=== PATIENT | female | born 1930 | race Caucasian/White ===

== ENCOUNTER 2016-08-10 11:47 | Inpatient (IN) | payer MEDICARE, BC ==
--- NOTE | ~2016-08-10 | EEG ---
Electroencephalogram [place] [address] [place]. [address] NAME: LEYDA JOHNSON : 32 STATUS : ADM IN PAT#: [id number] AGE: 86 ADM/REG DATE : 08/11/16 MR#: [id number] REPORT SERV DATE: 08/13/16 DICTATED BY: EDGARD PARKER DATE: 08/13/16 REPORT STATUS : Draft TRANSCRIBED BY: ZHOU DATE: 08/13/16 ELECTROENCEPHALOGRAPHY REPORT REQUESTING PHYSICIAN: Luis Armando Ford M.D. INTERPRETING PHYSICIAN: Edgard Parker MD-Neurology. EEG NUMBER: [id number] AGE: 86 REASON FOR EEG: Episodes of auditory aura occurring intermittently followed by episodes of hypersomnolence and occasional urinary incontinence. Recent onset of altered mental status. As per patient, these episodes at times are preceded by patient experiencing a smelling of unpleasant odor. 23 surface electrodes, 10-20 international placement was used. Photic stimulation was performed. Video monitoring was utilized. The patient was noted to be awake, drowsy, and asleep throughout the study. The background activity consisted of moderate voltage, relatively well-organized. 9-10 cycles per second located in the posterior head regions during the awake portion of the recording. Photic stimulation produced a driving response posteriorly. During photic stimulation, rare right posterior parietal and occipital sharp activity appeared. This was associated with photic stimulation of 8 cycles per second. Moderate amount of low-voltage fast activity was also seen scattered throughout. During drowsiness, increase of slower frequencies in the theta range was seen and that activity was predominantly seen in the frontal temporal regions. The configuration of the theta range activity seen to be unusually sharp, occasional phase reversals were also seen. Rare episode of high voltage spike activity was noted in the frontal central region. See page of recorded time 0:17:18, 815. The patient's drive thru order taker showed sinus rhythm with rate of 64 beats per minute. Occasional PVCs were noted. IMPRESSION: ABNORMAL EEG CHARACTERIZED BY PRESENCE OF PAROXYSMAL HIGH VOLTAGE SPIKE AND SPIKE AND WAVE ACTIVITY SEEN IN FRONTAL CENTRAL REGIONS. INTERMITTENTLY BILATERAL SYNCHRONOUS PARIETAL TEMPORAL SLOWING WAS SEEN. ONLY VERY BRIEF PERIOD OF LIGHT SLEEP WAS RECORDED. JUDSON/ZHOU Edgard Parker MD / [id number] Electroencephalogram [address] [place]. [address] NAME: LEYDA JOHNSON : 32 STATUS : ADM IN PAT#: [id number] AGE: 86 ADM/REG DATE : 08/11/16 MR#: [id number] REPORT SERV DATE: 08/13/16 DICTATED BY: EDGARD PARKER DATE: 08/13/16 REPORT STATUS : Draft TRANSCRIBED BY: MODL DATE: 08/13/16 CC: Luis Armando Ford M.D.
--- NOTE | ~2016-08-10 | CN ---
Consultation Report [facility] [address] [facility] [place]. [address] NAME: LEYDA JOHNSON : 32 STATUS : ADM IN PAT#: [id number] AGE: 86 ADM/REG DATE : 08/11/16 MR#: [id number] REPORT SERV DATE: 08/12/16 DICTATED BY: EDGARD PARKER DATE: 08/12/16 REPORT STATUS : Draft TRANSCRIBED BY: MODL DATE: 08/12/16 NEUROLOGICAL EVALUATION-CONSULTATION DATE OF CONSULTATION: 08/12/2016 LOCATION OF THE PATIENT: [facility]. REQUESTING PHYSICIAN: Dr. Luis Armando Ford. REASON FOR NEUROLOGICAL CONSULTATION: Complex auditory hallucinations. HISTORY OF PRESENT ILLNESS: This is an 86-year-old female with history of hypertension, CHF, recurrent atrial fibrillation, history of chronic cellulitis involving the right leg with possible staph sepsis in the past who was admitted with increasing abnormal perception of sound that would occur intermittently. The patient described this sound as musical tones at times associated with voices which speaks in sentences; however, the family describe that occasionally patient has prolonged episodes of confusion and speaking about mormon or mythological figures including "demons". The patient has no prior history of CVA as per family, has been living independently taking care of her disabled 50-year-old sister. The patient has been treated for several months for cellulitis of the right leg. The episodes described by the family also associated with sequence described by them. The patient describes smelling an unpleasant odor or hearing musical sound. Occasionally these episodes are followed by profound sleep where the patient appears to be sleeping for 20 to 30 minutes. Occasionally has urinary incontinence associated with it. PAST MEDICAL HISTORY: As mentioned above. PAST SURGICAL HISTORY: Includes history of right hip fracture repair. The patient had history of gallbladder surgery, hernia repair, and right hip repair. MEDICATIONS: The patient's family has been concerned. The patient apparently has been taking her medications without supervision. It was noticed that there were two pills left in her pill boxes. The medications that are listed from her 07/13/2016 outpatient visit included Cipro 500 mg b.i.d. for seven days, Colace, ferrous sulfate, Keflex, Lasix 40 mg once a day, metoprolol 25 mg half a tablet b.i.d., Oyster Shell calcium 500 mg with vitamin D b.i.d., Pepcid 20 mg p.o. daily, potassium chloride 20 mEq oral tablet extended release b.i.d., tramadol 50 mg half a tablet q.4 hours p.r.n. for pain, vitamin D 500 mg one tablet p.o. daily, vitamin B12 1 mg injectable solution every month, Xarelto 20 mg p.o. daily. SOCIAL HISTORY: She lives alone, takes care of her elderly sister, and she has four children. There is no history of smoking; however, the patient has been exposed to second- hand smoke from her . She is retired from the [employer]. Consultation Report [place] [id number] [facility] [place]. [address] NAME: LEYDA JOHNSON : 32 STATUS : ADM IN [facility]#: [id number] AGE: 86 ADM/REG DATE : 08/11/16 MR#: [id number] REPORT SERV DATE: 08/12/16 DICTATED BY: EDGARD PARKER DATE: 08/12/16 REPORT STATUS : Draft TRANSCRIBED BY: ZHOU DATE: 08/12/16 REVIEW OF SYSTEMS: The patient has not been ambulatory as per patient's family, she uses a wheelchair. She had recently had increase of urinary frequency attributed to the Lasix. As per patient's chart, has had recent decrease of weight. She does have history of chronic kyphosis of thoracic spine. The patient stated that she had recently received medication for sleeping and has noted that it apparently puts her to sleep very rapidly and increases some of her abnormal perception of musical sounds. FAMILY HISTORY: No history of strokes, dementia. No history of seizures in the family. PHYSICAL EXAMINATION: VITAL SIGNS: Blood pressure 123/68, pulse was 82, respirations 18, temperature was 96.8. HEAD AND NECK: Examination showed her to be normocephalic. There was no evidence of trauma. Auscultation of the neck showed no evidence of bruits. Eye exam, sclerae were not icteric. Conjunctivae were pink. ENT exam showed tongue to be normal size; however, slightly reddened in color, shiny, ?mild glossitis. Airway appeared to be slightly small. Mallampati class 2 to 3. MUSCULOSKELETAL: Significant kyphosis of the thoracic spine was noted. The patient was in a sitting up position. Very small in terms of size of her torso. As per patient, she shrunk "recently." CARDIOVASCULAR: The rest of general physical examination showed auscultation of her heart showed regular S1, S2. I did not appreciate any murmurs or rubs. ABDOMEN: Soft, nontender. EXTREMITIES: Right leg, discoloration of superficial redness and scaling consistent with chronic cellulitis versus venous stasis and peripheral pulses appeared intact. SKIN: The rest of the skin showed no evidence of petechiae, ecchymosis, hemorrhages, etc. NEUROLOGICAL EXAMINATION: The patient was alert, oriented to self, to place, mostly oriented to time. She was quite precise in describing the abnormal sensory events that were described above. Her speech was fluent. There was no evidence of aphasia or dysarthria. Memory testing was difficult to perform in front of the patient's entire family; however, the patient appeared to have no significant distant or recent memory problems. The patient appears to have good insight into her situation. CRANIAL NERVE EXAMINATION II THROUGH XII: Visual delong on confrontation were intact. Funduscopic exam showed no evidence of papilledema or hemorrhages. Pupils were 2.5 mm, equal, reactive to light and accommodation. Extraocular movements were full. There was no dysconjugate gaze. No facial asymmetry was observed. Hearing was decreased bilaterally. The patient stated she forgot her hearing aids. Lower cranial nerves showed tongue to be midline. No atrophy or fibrillations were noted. Palate elevated symmetrically. Facial sensation was intact and sternocleidomastoid and trapezius muscles appeared intact. MOTOR EXAM: Appeared to be within normal range on testing of upper extremities; however, lower extremity, the patient appeared to have decreased range of motion in the right leg, probably secondary to past hip fracture on the right. Distal knee movements appeared intact. Deep tendon reflexes were absent in both knees and trace in upper extremities. SENSORY EXAM: Showed decreased sensation to vibration distally in lower extremities. Consultation Report [address] [place]. [address] NAME: LEYDA JOHNSON : 32 STATUS : ADM IN [facility]#: [id number] AGE: 86 ADM/REG DATE : 08/11/16 MR#: [id number] REPORT SERV DATE: 08/12/16 DICTATED BY: EDGARD PARKER DATE: 08/12/16 REPORT STATUS : Draft TRANSCRIBED BY: ZHOU DATE: 08/12/16 CEREBELLAR EXAM: The patient did not have truncal ataxia and gait could not be tested. LABORATORY STUDIES: Sodium 137, potassium 3.7, chloride 102, BUN 11, creatinine 0.51, glomerular filtration rate 102, glucose 87, calcium 8.6, magnesium 2.1, phosphorus 3.3. WBC count 4.8, hemoglobin 11.4, hematocrit 34.9, platelet count 203,000. PT/INR 1.8. BMP is 117. TSH not tested. CT of the head showed no acute changes, mild atrophy of white matter ischemic changes were noted. IMPRESSION: 1. 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 The patient should have an MRI of the brain without and with contrast to rule out presence of previous strokes or space occupying lesion. Tumors that involve temporal uncus sometimes can cause auditory or musical aura. 2. The patient has new increased risk for recurrent stroke. These risk factors include hypertension, recurrent atrial fibrillation, advanced age. The patient should continue on Xarelto. Recommend to avoid dropping patient's blood pressure rapidly or precipitously with any agents that can cause that. Do not recommend using IV hydralazine. 3. Possible obstructive sleep apnea with episodes of hypersomnolence during the day. 4. The patient lives alone taking care of the elderly family member, sister and as recently, as noted by the family, not taking her medications properly. Would recommend for social service and planner chief address the patient to discharge her to a controlled environment. [facility] living facility should be considered where the patient can be supervised and her medications controlled. 5. Increased risk of falling and injury, past history of right hip fracture. The patient has extreme kyphosis of the thoracic spine, described being shorter in the last few months. Rule out compression fractures of the thoracic and cervical spine. Would recommend to obtain x-rays of the thoracic and cervical spine if not done prior to admission. Recommend to obtain an EEG and if normal, an outpatient ambulatory EEG may be helpful to capture episodes described by the patient as it most likely represent partial or as mentioned above in the past, described as "temporal lobe seizures." Laboratory studies that should be tested and not clear whether the patient may have had TSH or thyroid profile tested on outpatient basis. If not done recently, recommend to obtain TSH, free T4 and free T3, vitamin D levels, although the patient is on monthly injections of vitamin B12. We would recommend to monitor the responsiveness to the current dose or frequency of injections. PT and OT to evaluate the patient. The patient's chart describes questionable lung nodules. The workup for possible lung cancer and possible brain METS is recommended. Thank you for allowing Neurology to participate in this patient's care. RKA/ZHOU Consultation Report [address] [place]. [address] NAME: LEYDA JOHNSON : 32 STATUS : ADM IN PAT#: [id number] AGE: 86 ADM/REG DATE : 08/11/16 MR#: [id number] REPORT SERV DATE: 08/12/16 DICTATED BY: EDGARD PARKER DATE: 08/12/16 REPORT STATUS : Draft TRANSCRIBED BY: ZHOU DATE: 08/12/16 Edgard Parker MD / [id number] CC: Luis Armando Ford M.D.
--- NOTE | ~2016-08-10 | CN ---
Consultation Report [place] [id number] [facility] [place]. [address] NAME: LEYDA JOHNSON : 32 STATUS : ADM IN [facility]#: [id number] AGE: 86 ADM/REG DATE : 08/11/16 MR#: [id number] REPORT SERV DATE: 08/24/16 DICTATED BY: LUCHO GARDNER DATE: 08/24/16 REPORT STATUS : Draft TRANSCRIBED BY: MODL DATE: 08/24/16 CARDIOLOGY CONSULTATION DATE OF CONSULTATION: 08/24/2016 REASON FOR CONSULTATION: PVCs, on telemetry. HISTORY OF PRESENT ILLNESS: The patient is an 86-year-old female, admitted 08/11/2016 with auditory hallucinations. Seen by Neurology and felt that these were associated with dementia and temporal lobe seizures. The patient was started on Keppra. The patient has also been treated with Zosyn and vancomycin for right lower extremity cellulitis. Consultation was requested due to evidence of intermittent frequent premature ventricular contractions on telemetry. The patient is asymptomatic. She denies chest pain, palpitations, presyncope, or syncope. She denies dyspnea on exertion. PAST MEDICAL HISTORY: 1. Hypertension. 2. Paroxysmal atrial fibrillation. 3. Chronic anticoagulation secondary to paroxysmal atrial fibrillation. 4. Anxiety disorder. 5. GERD. 6. Cellulitis of the right lower extremity. 7. Auditory hallucinations. PAST SURGICAL HISTORY: Herniorrhaphy, cholecystectomy, and open reduction and internal fixation of the right femur in 2007. SOCIAL HISTORY: Denies tobacco, alcohol, or illicit drug use. FAMILY HISTORY: Father of cerebrovascular accident in older age. Mother reportedly had a history of "heart problems." No specific stone. Sister with a history of cerebrovascular accident and pacemaker. REVIEW OF SYSTEMS: Negative for all organ systems except per the history of present illness. PHYSICAL EXAMINATION: VITALS: Blood pressure 137/68, pulse 76, respirations 12 and unlabored, saturating 92% on room air, and weight 57 kg. GENERAL: Elderly female in no acute distress. HEENT: Normal. NECK: Supple, no JVD or bruit, normal carotid upstroke bilaterally, no thyromegaly. BACK: Severe kyphosis is noted. LUNGS: Clear to auscultation and percussion. No wheezes, rales or rhonchi. No use of Consultation Report [place] [id number] [facility] [place]. [address] NAME: LEYDA JOHNSON : 32 STATUS : ADM IN PAT#: [id number] AGE: 86 ADM/REG DATE : 08/11/16 MR#: [id number] REPORT SERV DATE: 08/24/16 DICTATED BY: LUCHO GARDNER DATE: 08/24/16 REPORT STATUS : Draft TRANSCRIBED BY: ZHOU DATE: 08/24/16 accessory muscles. CARDIOLOGY: Regular rhythm, normal S1, S2, no thrill, no rubs or gallops, normal PMI. There is grade 2/6 holosystolic murmur appreciated best at the apex. ABDOMEN: Bowel sounds positive, soft, nontender, and nondistended. No masses or aortic bruits. No hepatosplenomegaly or hepatojugular reflux. EXTREMITIES: No edema. Normal pulses. No clubbing or cyanosis. Erythema of the right lower extremity consistent with cellulitis. SKIN: Warm and dry, no significant rash. NEUROLOGIC: Alert and oriented x 3. Appropriate mood. LABORATORY DATA: Sodium 142, potassium 3.7, chloride 105, BUN 15, creatinine 0.53 with a glomerular filtration rate of 101 mL/minute. Glucose 88. Magnesium 2.3. WBC 5, hemoglobin 11.8, hematocrit 36.9, and platelets 253,000. EKG: Sinus rhythm. Normal QT interval. Telemetry: Intermittent premature ventricular contractions noted on previous recordings. Occasional short runs of bigeminy. IMPRESSION: 1. Premature ventricular contractions - unremarkable 12-lead EKG. Recently begun on antipsychotic medications. No evidence of significant QT prolongation. Electrolytes within normal limits. The patient is asymptomatic. No indication for treatment of these asymptomatic premature ventricular contractions at this time. 2. Paroxysmal atrial fibrillation - in sinus rhythm. Continue beta-iram. 3. Chronic anticoagulation for stroke prophylaxis due to paroxysmal atrial fibrillation - continue Xarelto. Thank you for the opportunity to see the patient in consultation. She is stable from a cardiac standpoint. No indication for further cardiac evaluation at this time. We will sign off and be available as necessary. From a cardiac standpoint, the patient will be discharged when appropriate medically. CSL/MODL Kassie Gardner M.D. / [id number] CC: Luis Armando Ford M.D.
--- NOTE | ~2016-08-10 | HP ---
History And Physical [place] [id number] [place] [place]. [address] NAME: LEYDA JOHNSON : 34 STATUS : ADM IN [facility]#: [id number] AGE: 86 ADM/REG DATE : 08/11/16 MR#: [id number] REPORT SERV DATE: 08/12/16 DICTATED BY: AIDEE BAILEY DATE: 08/11/16 REPORT STATUS : Draft TRANSCRIBED BY: MODL DATE: 08/11/16 DATE OF ADMISSION: 08/11/2016 CHIEF COMPLAINT: Hallucination, both visual and auditory, worst in the last 48 hours. HISTORY OF PRESENT ILLNESS: The patient is an 86-year-old female, who is a patient of [facility], presented to the [facility] Emergency Room on 08/10/2016 secondary to worsening delirium, hallucination, and paranoia per family. The patient reports she has been hearing music and visually hallucinating a sporadic episode to include seeing her who is now , her mother holding a child and of herself at age 16. At times, she would hallucinate a man dressed in black and hat, which she "claims as Satan." The patient's granddaughter and daughter at the bedside report that she has been treated with Seroquel, initially was placed on 50 mg and no changes in the patient's complaint of hallucination. Her Seroquel was increased in July from 50 to 75, and still family reports no significant changes. However, family reports that [facility] had seen the patient last week and counted all her home meds and she was two weeks plus on her medication; therefore, the patient has not been taking her medication despite the patient saying she has been for the last two weeks. The patient denies any associated fever, chills, or any cough. She had reported at times she had felt some burning when she urinates. Family reports the patient has always had some form of incontinence, especially stress incontinence. The patient uses a diaper. ALLERGIES: THE PATIENT WITH NO KNOWN DRUG ALLERGY AND NO FOOD ALLERGY. CODE STATUS: The patient is full code. MEDICATIONS: Home meds to include: 1. Calcium with vitamin D 500 mg twice a day. 2. Zyrtec 10 mg p.o. at bedtime. 3. Ferrous sulfate 325 mg p.o. twice a day. 4. Flonase nasal spray two sprays in both nares daily. 5. Lasix 40 mg daily. 6. Metoprolol tartrate 25 mg twice a day. 7. Potassium chloride 20 mEq twice a day. 8. Seroquel 75 mg at bedtime. 9. Xarelto 20 mg at bedtime. PAST MEDICAL HISTORY: To include: 1. Hypertension. 2. Anxiety disorder with hallucination, both visual and auditory. 3. Bilateral lower extremity edema. 4. Chronic right lower extremity cellulitis, treated for possible staph infection at least x3 in the last year. 5. Acquired kyphosis. 6. GERD. History And Physical [address] [address] NAME: LEYDA JOHNSON : 34 STATUS : ADM IN [facility]#: [id number] AGE: 86 ADM/REG DATE : 08/11/16 MR#: [id number] REPORT SERV DATE: 08/12/16 DICTATED BY: AIDEE BAILEY DATE: 08/11/16 REPORT STATUS : Draft TRANSCRIBED BY: ZHOU DATE: 08/11/16 7. Unexplained weight loss. 8. Atrial fibrillation with chronic anticoagulation. 9. Venous stasis ulcer of the right lower extremity. 10.Congestive heart failure, unsure type. 11.Dizziness/vertigo, improved with past physical therapy. 12.History of right femur fracture. 13.Hard of hearing. PAST SURGICAL HISTORY: Had a hernia repair, cholecystectomy, right femur fracture with repair in 2008. FAMILY HISTORY: Father is from stroke. Mother has history of heart disease. Older sister with history of stroke, diabetes, and pacemaker. Brother with history of kidney disease and heart disease. Another sister with pacemaker. One of the patient's son at early age with stomach cancer, unknown type. SOCIAL HISTORY: The patient lives alone with her disabled 52-year-old daughter, but family is very supportive and live close by. The patient has five children. The patient denies any history of smoking, alcohol use, or any illicit drug use. The patient's was a heavy smoker. REVIEW OF SYSTEMS: The patient with history of bilateral cataracts, no surgery. She is hard of hearing and uses hearing aids. She does use upper dentures and partial lower dentures. The patient reports that she takes her medicine one at a time with apple sauce. She reports no coughing, no fever and she does have history of GERD. The patient with history of seasonal allergies. The patient denies any shortness of breath or chest pain. Denies any nausea, vomiting, or abdominal pain. She reports her last BM was Wednesday, but granddaughter thinks she might have had Wednesday. The patient with history of generalized arthritis with kyphosis. The patient denies any history of seizure. Denies any history of stroke. Has had some issue with dizziness and vertigo. The patient reports that she had improvement of her vertigo when she underwent physical therapy. The patient with no history of thyroid problem, but she does stay cold. The patient with history of atrial fibrillation, on Xarelto and has not had any bleeding. The patient walks only with walker and uses a wheelchair also to get around. The patient with lower extremity swelling and right leg cellulitis that has been going on for a year. Had had multiple treatments, at least three times for possible staph cellulitis. Family reports her swelling has improved, and the [facility] has been following the patient for wound care. Family reports that they have noted some recent drainage and odor of that right leg. History And Physical [address] [address] NAME: LEYDA JOHNSON : 34 STATUS : ADM IN [facility]#: [id number] AGE: 86 ADM/REG DATE : 08/11/16 MR#: [id number] REPORT SERV DATE: 08/12/16 DICTATED BY: AIDEE BAILEY DATE: 08/11/16 REPORT STATUS : Draft TRANSCRIBED BY: ZHOU DATE: 08/11/16 LABORATORY STUDY: On 08/10, sodium of 141, potassium 3.7, chloride 100, CO2 of 35, BUN 11, creatinine is 0.43, glucose of 90, GFR of 93. WBC 5.3, hemoglobin 12.3, hematocrit 38.7, platelet of 256. INR 1.7, PT of 20.1. AST of 23, bilirubin 0.5, total protein 7.2, ALT 19, albumin 3.2, alkaline phosphatase 94. A UA negative. A urine culture less than 5000 gram- positive cocci. IMAGING: Brain CT scan on 08/10/2016 showed no acute infarct or hemorrhage. Chest x-ray on 08/10/2016 showed bilateral pulmonary nodules suspected with one in the right and two in the left, representing metastatic disease. CT scan recommended. PHYSICAL EXAMINATION: VITAL SIGNS: Temp 96.5, pulse 76, respiratory rate 18, BP of 122/62, sat O2 of 93% on room air. Weight of 56.69 kg, BMI of 20.2. GENERAL: The patient is a pleasant elderly female, in no acute distress. Very conversant. She is alert and oriented to name and place. HEENT: Oral mucosa moist. The patient is dentitious. Eyes, PERRL, nonicteric bilaterally. NECK: No JVD. LUNGS: Clear to auscultation bilaterally. Symmetrical expansion. CV: Irregular rate and rhythm. Noted 2/6 systolic ejection murmur, heard best on the left fifth intercostal space. ABDOMEN: Soft and nontender with bowel sounds active x4. No organomegaly. : The patient uses a diaper, but exam shows no sign of discharge. SKIN: Noted sacral area, mainly in the coccyx, with stage I pressure ulcer. 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 Bilateral lower extremity with some trace edema on the left foot. However, right lower extremity with at least 2+ edema, pain on palpation, difficult to assess pedal pulses secondary to pain. The patient with erythema that appears to be a stocking shape from at least 2 inches below knee all the way to her foot. She has advanced thickening of her toenails. Bilateral lower extremity, the patient moves freely, except generalized weakness with right worse than left with at least 3/5 strength secondary to pain. MUSCULOSKELETAL: Noted marked kyphosis, but no pain on palpation throughout the neck and lumbar spine. ASSESSMENT: 1. Mixed auditory and visual hallucination, unsure if neurologic in origin. 2. Right lower extremity cellulitis and edema. 3. Bilateral lung nodules, question metastatic disease. 4. Chronic atrial fibrillation, on chronic anticoagulation therapy. 5. Hypertension, essential, controlled. 6. Congestive heart failure, question type. 7. Gastroesophageal reflux disease. 8. History of dizziness and vertigo. 9. Hard of hearing bilaterally. 10.Debility. 11.Advanced onychomycosis. History And Physical [address] [address] NAME: LEYDA JOHNSON [place] : 34 STATUS : ADM IN PAT#: [id number] AGE: 86 ADM/REG DATE : 08/11/16 MR#: [id number] REPORT SERV DATE: 08/12/16 DICTATED BY: AIDEE BAILEY DATE: 08/11/16 REPORT STATUS : Draft TRANSCRIBED BY: ZHOU DATE: 08/11/16 PLAN: 1. We will refer the patient to Neurology for assisting on the patient's hallucination to question if this is more neurologic in origin. The patient did have a CT scan in the ER yesterday, which revealed no acute infarct or hemorrhages. We will plan to decrease Seroquel from 75 to 50 since this is not effective and question if hallucination is enhanced with this agent. On reviewing home meds, I do not see any other agent that could cause some hallucination. 2. The patient with chronic right lower extremity cellulitis. Likely, this is an active infection and could play a factor in the patient's altered mental status. We will ensure blood culture is obtained x2. Change Rocephin for empiric treatment of both anaerobes and gram negative and gram positive, so we will have Pharmacy to dose vancomycin and Zosyn. We will have Pharmacy to follow vanco trough, and we will check labs in a.m. The patient with good renal function. She has been afebrile since admission and her white count on admission was within normal limits, and also we will obtain both venous and arterial flow studies to rule out any DVT as well as peripheral vascular disease that will hinder the patient's healing process. If needed, we will obtain cultures from leg, but at this time, the patient's leg was not draining. We will refer the patient to Wound Care and will monitor right leg wound for further skin breakdown. The patient is at risk for further skin breakdown and sepsis. 3. The patient's chest x-ray showed bilateral lung nodules with possible metastatic disease. The patient has no history of smoking, but has had long history of secondhand smoker, which possibly could also cause lung cancer. We will further evaluate by obtaining a chest CT scan without contrast. 4. We will continue telemetry given the patient's history of atrial fibrillation. The patient with good heart rate control with beta-iram and on Xarelto. Admission INR is 1.7, this morning is 1.8. We will monitor for any signs and symptoms of bleeding, the patient is at risk for bleeding. 5. The patient with a history of hypertension, but pretty well controlled. We will continue home med regimen with metoprolol as well as Lasix. 6. The patient with possible history of CHF, but unsure type, and records from [facility] does not show the patient as having any history of congestive heart failure. We will obtain a BNP with a.m. labs to evaluate. 7. The patient with debility, we will place on fall precaution and refer to PT. The patient is on Xarelto, therefore, is on appropriate treatment for any prophylaxis. However, we will obtain a venous ultrasound to rule out if any issue with DVT. The patient is at risk for fall. 8. We will continue other home med regimen to include Zyrtec, potassium, Flonase, iron, calcium, and Lasix. 9. The patient with advanced onychomycosis. We will plan to obtain Podiatry consult for treatment of onychomycosis. The patient will likely need debridement. Discussed plan of care with the patient's family, two daughters, and a granddaughter at the bedside and agreed with plan of care. All desire the patient to be a full code, we will ensure POLST form in chart. Discussed plan of care with Dr. Aidee Bailey. DICTATED BY: Mague Enriquez NP History And Physical [address] [address] NAME: LEYDA JOHNSON : 34 STATUS : ADM IN [facility]#: [id number] AGE: 86 ADM/REG DATE : 08/11/16 MR#: [id number] REPORT SERV DATE: 08/12/16 DICTATED BY: AIDEE BAILEY DATE: 08/11/16 REPORT STATUS : Draft TRANSCRIBED BY: MODArley DATE: 08/11/16 CLP/ZHOU Aidee Bailey M.D. / [id number] CC: Luis Armando Ford M.D.
--- NOTE | ~2016-08-10 | OP ---
Record Of Operation [facility] [address] [place]. [address] NAME: LEYDA JOHNSON : 34 STATUS : ADM IN PAT#: [id number] AGE: 86 ADM/REG DATE : 08/11/16 MR#: [id number] REPORT SERV DATE: 08/20/16 DICTATED BY: MILAD XAVIER DATE: 08/20/16 REPORT STATUS : Draft TRANSCRIBED BY: MODArley DATE: 08/20/16 DATE OF PROCEDURE: 08/17/2016 PREPROCEDURE DIAGNOSIS: Cellulitis, right lower extremity with multiple skin excoriation and monophasic flows at the pedal level suggesting ischemia. POSTOPERATIVE DIAGNOSIS: Widely patent arterial system with adequate flow to the pedal arch via the peroneal artery only. PROCEDURE PERFORMED: 1. Antegrade right superficial femoral artery catheterization with right lower extremity runoff. 2. Selective catheterization of the right popliteal artery with direct arteriography. ATTENDING PHYSICIAN: Milad Xavier M.D. ANESTHESIA: Local MAC. COMPLICATIONS: None. INDICATION FOR PROCEDURE: Secondary to this very pleasant 86-year-old female presenting with cellulitis picture to the right lower extremity with multiple skin excoriations suggesting arterial insufficiency. Recommendations were made for arteriography to further define her peripheral vascular system repair as appropriate. Risks and benefits were discussed. Consent was obtained. DETAILS OF PROCEDURE: The patient was brought to the endovascular operating room, placed in supine position, prepped and draped in routine sterile fashion with attention to the right lower extremity. The right superficial femoral artery was catheterized with a micropuncture needle followed by a wire and a sheath. Arteriogram then performed, demonstrated widely patent proximal SFA, 3000 units of heparin was given to allow to circulate. The catheter was then advanced to the popliteal artery and direct arteriogram was then performed which showing widely patent popliteal artery with three-vessel runoff proximally with the peroneal artery being the dominant vessel. The anterior tibial artery and posterior tibial artery were diminutive. Next, runoff into the lower leg showed evidence of a widely patent peroneal artery with an area of 30% stenosis in the mid segment. However, the artery collateralized via a large collateral to the distal posterior tibial artery which reconstituted the medial lateral plantar artery with adequate flow into the foot via a lateral projection film. With this completed, wires and catheters were then removed. The right SFA was then closed with Angio-Seal. The patient tolerated the procedure well. CL/MODL Milad Record Of Operation [facility] [address] [place]. [address] NAME: LEYDA JOHNSON : 34 STATUS : ADM IN [facility]#: [id number] AGE: 86 ADM/REG DATE : 08/11/16 MR#: [id number] REPORT SERV DATE: 08/20/16 DICTATED BY: MILAD XAVIER DATE: 08/20/16 REPORT STATUS : Draft TRANSCRIBED BY: ZHOU DATE: 08/20/16 Maurilio Xavier / [id number] CC: Luis Armando Ford M.D.
--- NOTE | ~2016-08-10 | DS ---
Discharge Summary [facility] [id number] [place]. [address] NAME: LEYDA JOHNSON : 34 STATUS : DIS IN PAT#: [id number] AGE: 86 ADM/REG DATE : 08/11/16 MR#: [id number] REPORT SERV DATE: 09/10/16 DICTATED BY: LUIS ARMANDO FORD DATE: 09/09/16 REPORT STATUS : Draft TRANSCRIBED BY: ZHOU DATE: 09/09/16 Data Collection from hospitalization DISCHARGE DIAGNOSES: 1. Premature ventricular contractions-asymptomatic. 2. Paroxysmal atrial fibrillation with chronic anticoagulation therapy. 3. Auditory and visual hallucinations with anxiety disorder. 4. Temporal lobe seizure disorder. 5. 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 6. Bilateral lower extremity cellulitis. 7. Hypertension. 8. Congestive heart failure. 9. Gastroesophageal reflux disease. CONSULTATIONS: 1. Edgard Parker M.D. 2. Chi Thomas M.D. 3. Kassie Gardner M.D. 4. Milad Xavier M.D. PROCEDURES: 1. Antegrade right superficial femoral artery catheterization with right lower extremity runoff, selective catheterization of the right popliteal artery with direct arteriography, 08/17/2016. 2. CT scan of the brain without contrast, 08/10/2016. 3. CT scan of the chest without contrast, 08/11/2016. 4. Venous Doppler ultrasound of the bilateral lower extremities, 08/12/2016. 5. Bilateral lower extremity arterial Doppler study, 08/12/2016. 6. Electroencephalogram, 08/13/2016. DISCHARGE MEDICATIONS: 1. Os-Sanjeev Plus D 500 mg twice a day. 2. Pepcid 20 mg at bedtime. 3. Ferrous sulfate 325 mg twice a day. 4. Flonase nasal spray two sprays nasally daily. 5. Lasix 40 mg daily. 6. Keppra 500 mg at bedtime and 250 mg at 8 a.m. and 2 p.m. 7. Lopressor 12.5 mg twice a day. 8. Mycostatin ointment apply topically to the buttocks and groin three times a day. 9. Klor-Con 20 mEq twice a day. 10.Seroquel 12.5 mg daily. 11.Seroquel 25 mg at bedtime. 12.Exelon 4.6 mg topically at 9 a.m. 13.Xarelto 20 mg at bedtime. 14.Tylenol 650 mg as needed. 15.Ativan 0.25 mg three times a day as needed. 16.Mycostatin apply topically to the buttocks and groin as needed. Discharge Summary [facility] [address] [place]. [address] NAME: LEYDA JOHNSON : 34 STATUS : DIS IN PAT#: [id number] AGE: 86 ADM/REG DATE : 08/11/16 MR#: [id number] REPORT SERV DATE: 09/10/16 DICTATED BY: LUIS ARMANDO FORD DATE: 09/09/16 REPORT STATUS : Draft TRANSCRIBED BY: ZHOU DATE: 09/09/16 CONDITION AT DISCHARGE: Stable. DISPOSITION: The patient was discharged to [facility] on a regular diet with activities as instructed. FOLLOWUP: 1. She would follow up with Dr. Milad Xavier two to four weeks following discharge. 2. She would follow up with [facility] one to two months following discharge. 3. She is to follow up with Podiatry as instructed. HOSPITAL COURSE: This is an 86-year-old female, who is a patient of [facility]. She presented to the [facility] Emergency Room secondary to worsening delirium, hallucinations, and paranoia according to her family. The patient reports that she has been hearing music and visually hallucinating a sporadic episode including seeing her who is now , and seeing her mother holding a child and of herself at age 16. At times she would hallucinate a man dressed in black and in a hat, which she claims to be Satan. The patient's granddaughter and daughter were at the bedside, and reports that she has been treated with Seroquel and was initially placed on 50 mg and no changes had been seen in the patient's complained of hallucinations. Her Seroquel was increased in July from 50 mg to 75 mg and still her family reported no significant changes. Her reports that Home [facility] Care had seen the patient the week prior to this admission and counted all of her home medications. It was felt that the patient had not been taking her medications despite the patient staying she has had been for the past two weeks. She was admitted to the hospital at this time for further evaluation and treatment. Upon admission, she was felt to have mixed auditory and visual hallucinations. Seroquel was decreased. She has chronic right lower extremity cellulitis, it was felt this was likely an active infection, it could play a factor in her altered mental status. Blood cultures were obtained. Rocephin was changed to vancomycin and Zosyn. We were going to continue telemetry given the patient's history of atrial fibrillation. Admission INR level was 1.7, it was now 1.8. Home medication regimen would be continued with metoprolol as well as Lasix. BNP was going to be obtained. Zyrtec, potassium, Flonase, iron, calcium, and Lasix were continued. The following day, the patient was seen by Dr. Edgard Parker. A CT scan of the brain without contrast had been performed as well as a CT scan of the chest without contrast. The patient does have complex auditory hallucinations, the patient described this as musical tones at times associated with voices which speak in sentences; however, her family described that occasionally the patient will have prolonged episodes of confusion and speaking about scientology or mythological figures including demons. The patient has no prior history of CVA according to her family. She had been living independently, taking care of a disabled 50-year-old sister. She had been treated for several months for cellulitis of the right leg. The patient described smelling and unpleasant odor or hearing musical sounds. Occasionally these episodes are followed by profound sleep where the patient appears to be sleeping for 20 to 30 minutes. Occasionally there will be urinary incontinence associated with this. It was felt that the episodes of auditory hallucinations may represent an aura of partial seizure in the past called temporal lobe seizures, frequently preceded by an aura of abnormal smell or abnormal sounds. An MRI of the brain was requested without and with contrast. Tumors that involved temporal uncus sometimes can cause auditory or a musical Discharge Summary [address] [place]. [address] NAME: LEYDA JOHNSON : 34 STATUS : DIS IN [facility]#: [id number] AGE: 86 ADM/REG DATE : 08/11/16 MR#: [id number] REPORT SERV DATE: 09/10/16 DICTATED BY: LUIS ARMANDO FORD DATE: 09/09/16 REPORT STATUS : Draft TRANSCRIBED BY: MODL DATE: 09/09/16 aura. The patient was going to be continued on Xarelto, it was recommended that we avoid dropping the patient's blood pressure rapidly or precipitously with agents that can cause this. IV hydralazine was not recommended. A skilled nursing living facility should be considered where the patient could to be supervised and her medications controlled. A venous Doppler ultrasound of the bilateral lower extremities was performed as well as bilateral lower extremity arterial Doppler study. One of two blood cultures was positive for Staph species. On the , an EEG was performed, this was an abnormal EEG characterized by the presence of paroxysmal high-voltage spike, and spike and wave activity seen in the frontal central regions, intermittently bilateral synchronous parietal temporal slowing was seen, only very brief periods of light sleep was recorded. The patient was not able to undergo MRI secondary to her severe kyphosis of the thoracic spine. The patient denied any new complaints. She was still experiencing auditory and visual hallucinations. She was still able to sleep at night. The patient was felt to have had parietal and temporal seizures. IV vancomycin and Zosyn were continued. On 08/15/2016 Occupational Therapy evaluated the patient. She did have some right lower extremity cellulitis. The patient has a sock-like form of cellulitis. Wound Care has followed her for her peripheral artery disease. Blood cultures were negative at this time. The patient was tolerating Keppra. She had no fevers, chills, nausea, or vomiting. An EEG had been positive for seizure disorder. The patient seemed to be feeling better. Keppra was continued. On 08/17/2016, the patient reported still hearing and seeing things. She was upset that her family did not believe her. H and H were stable. Iron supplementation continued. She was seen by Dr. Milad Xavier. The patient has cellulitis of the right lower extremity with multiple skin excoriation and monophasic flow at the pedal level suggesting ischemia. It was felt that the patient would need to undergo antegrade right superficial femoral artery catheterization with right lower extremity runoff and selective catheterization of the right popliteal artery with direct arteriography. This was performed and postoperatively there was a widely patent arterial system with adequate flow to the pedal arch via the peroneal artery only. The next day she was still hearing occasional music. Her Keppra had been increased. She was on Xarelto and metoprolol. She had no complaints of shortness of breath, chest pain, nausea, vomiting, or abdominal pain. On 08/19/2016, she was extremely chatty. She was somewhat paranoid, her topics did not make much sense. The nurses reported that her auditory and visual hallucinations were becoming more frequent and intense. On 08/20/2016, she was wanting to go home. Low-dose Exelon patch was going to begin. Seroquel and Keppra were continued. She remained on Xarelto and beta-iram. Namenda was continued. On the , she is said to have some difficulty breathing. She did have reflux during the night. She also had some periods of being anxious. She completed her vancomycin. Zosyn was going to be completed that day. Her Ativan was increased. On 08/23/2016 she still had some anxiety, but refused Ativan. Zosyn had been stopped. Blood pressure was stable. The next day, she was seen by Dr. Chi Thomas regarding her audio and visual hallucinations. Keppra had been prescribed, but apparently it was not helpful. She had been diagnosed with partial frontotemporal seizures and also being given a tentative diagnosis of dementia and had been started on an Exelon patch. We thought we could try increasing the dose of Seroquel. Many of the hallucinations seemed to be totally benign. He suggested that we try stopping the bedtime Claritin or Zyrtec, as these medications can Discharge Summary [address] [address] NAME: LEYDA JOHNSON : 34 STATUS : DIS IN PAT#: [id number] AGE: 86 ADM/REG DATE : 08/11/16 MR#: [id number] REPORT SERV DATE: 09/10/16 DICTATED BY: LUIS ARMANDO FORD DATE: 09/09/16 REPORT STATUS : Draft TRANSCRIBED BY: ZHOU DATE: 09/09/16 have undesirable central nervous system side effects. She was also seen by Dr. Kassie Gardner regarding PVCs on telemetry. There was evidence of intermittent frequent premature ventricular contractions on telemetry. The patient was asymptomatic. She denied chest pain, palpitations, presyncope or syncope. She denies dyspnea on exertion. EKG revealed sinus rhythm with normal QT interval. We recently started antipsychotic medication. There was no evidence of significant QT prolongation. Electrolytes were within normal limits. The patient was asymptomatic. There was no indication for treatment of these asymptomatic premature ventricular contractions at this time. She has a history of paroxysmal atrial fibrillation. She was in a sinus rhythm. Beta-iram was continued. She remained on Xarelto. Discharge planning was performed. She was stable from a cardiac standpoint. On 08/25/2016, she denied any complaints. She was alert and cooperative. Her lungs were clear. Outpatient followup was recommended for PVCs. Discharge instructions were given. Due to her improved and stable condition, she was discharged to [facility] with the above-stated instructions. Information collected by: Latasha Beaulieu I submit the above information as my discharge summary. TG/MODArley Luis Armando Ford M.D. / [id number] CC: Maurilio Sanabria M.D. C. Samuel Ledford, M.D. Denis Kennedy, M.D. [facility]
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
--- NOTE | ~2016-08-10 | EEG ---
Electroencephalogram [address] [place]. [address] NAME: LEYDA JOHNSON : 34 STATUS : ADM IN PAT#: [id number] AGE: 86 ADM/REG DATE : 08/11/16 MR#: [id number] REPORT SERV DATE: 08/13/16 DICTATED BY: EDGARD PARKER DATE: 08/13/16 REPORT STATUS : Draft TRANSCRIBED BY: MODArley DATE: 08/13/16 CONTINUATION: INTERPRETING PHYSICIAN: Edgard Parker MD. EEG NUMBER: [id number]. History of new onset of possible temporal lobe seizures with an above described aura. IMPRESSION: ABNORMAL EEG CHARACTERIZED BY PRESENCE OF PAROXYSMAL SPIKE AND WAVE ACTIVITY SEEN IN THE FRONTAL REGIONS DESCRIBED, SEE THE PAGES MENTIONED, INTERMITTENT BILATERALLY SYNCHRONOUS PARIETOTEMPORAL SLOWING WAS SEEN, OCCASIONALLY RIGHT GREATER THAN LEFT. SHARP ACTIVITY WAS NOTED IN THAT LOCATION, INCREASE OF LOW-VOLTAGE BETA RANGE ACTIVITY, MAYBE THETA RANGE ACTIVITY APPEAR SHARPER. THIS EEG IS ABNORMAL AND MAY REPRESENT PRESENCE OF SEIZURE DISORDER. CLINICAL CORRELATION IS RECOMMENDED. JUDSON/ZHOU Edgard Parker MD / [id number] CC: Luis Armando Ford M.D.
[2016-08-10 13:45] LABS: BASOPHILS 0.6 %; BASOPHILS ABSOLUTE 0.03 10/3/uL (0.0-0.16); EOSINOPHILS 1.3 %; EOSINOPHILS ABSOLUTE 0.07 10/3/uL (0.0-0.53); ER CBC TAT 0 Hrs 03 Mins; HEMATOCRIT 38.7 % (36.0-48.0); HEMOGLOBIN 12.3 g/dL (12.0-16.0); IMMATURE GRANULOCYTES 0.4 %; IMMATURE GRANULOCYTES ABSOLUTE 0.02 10/3/uL (0.0-0.11); LYMPHOCYTES 20.5 %; LYMPHOCYTES ABSOLUTE 1.08 10/3/uL (0.67-4.30); MEAN CORPUS HGB CONC 31.8 g/dL (32.0-36.0); MEAN CORPUSCULAR HEMOGLOB 31.9 pg (26.0-34.0); MEAN CORPUSCULAR VOLUME 100.5 fL (80-100); MEAN PLATELET VOLUME 10.9 fL (9.2-13.0); MONOCYTES 9.9 %; MONOCYTES ABSOLUTE 0.52 10/3/uL (0.21-1.20); NEUTROPHILS 67.3 %; NEUTROPHILS ABSOLUTE 3.55 10/3/uL (2.02-8.40); PLATELET COUNT 256 10/3/uL (150-400); RBC DISTRIBUTION WIDTH 13.9 % (12.0-16.0); RED CELL COUNT 3.85 10/6/uL (4.0-5.6); WHITE BLOOD CELLS 5.3 10/3/uL (4.5-10.5)
[2016-08-10 13:46] LABS: MANUAL DIFF NO %
[2016-08-10 13:52] LABS: INTERNATIONAL NORMAL RATI 1.7 UNITS (-); PROTIME (NOT ORD) 20.1 SEC (12.0-14.5)
[2016-08-10 14:04] LABS: A/G RATIO 0.8 (0.7-1.9); ACETAMINOPHEN LEVEL (TYLENOL) < 2.0 MCG/ML (10.0-20.0); ALBUMIN 3.2 G/DL (3.5-5.0); ALCOHOL < 10 MG/DL (0); ALKALINE PHOSPHATASE 94 U/L (45-117); BUN (BLOOD UREA NITROGEN) 11 MG/DL (6-23); CALCIUM, SERUM 9.1 MG/DL (8.5-10.4); CHLORIDE, SERUM 100 MMOL/L (96-112); CO2 (CARBON DIOXIDE) 35 MMOL/L (24-34); CREATININE 0.43 MG/DL (0.55-1.02); GFR AFRICAN AMERICAN 108 ML/MIN (>=60); GFR NON AFRICAN AMERICAN 93 ML/MIN (>=60); GLUCOSE, SERUM 90 MG/DL (60-99); POTASSIUM, SERUM 3.7 MMOL/L (3.5-5.3); SALICYLATE < 1.7 MG/DL (-); SGOT(AST) 23 U/L (5-40); SGPT(ALT) 19 U/L (5-65); SODIUM, SERUM 141 MMOL/L (135-148); TOTAL BILIRUBIN 0.5 MG/DL (0-1.2); TOTAL PROTEIN 7.2 G/DL (6.0-8.5); TROPONIN I <0.02 NG/ML (<0.05)
[2016-08-10 14:36] LABS: ASCORBIC ACID (UR NOT ORDER) NEG (NEG); BILIRUBIN, URINE NEGATIVE (NEG); ER URINALYSIS TAT 0 Hrs 12 Mins; KETONE, URINE NEGATIVE (NEG); LEUKOCYTE ESTERASE(NOT OR SMALL (NEG); NITRITE (URINE) NEG (NEG); WBC (NOT ORDERED) (RFLEX) 10 (0-5)
[2016-08-10 14:47] LABS: AMPHETAMINES (NOT ORD) NEG (NEG); BARBITURATES (NOT ORDERED NEG (NEG); BENZODIAZEPINES (NOT ORD) NEG (NEG); CANNABINOIDS (THC) NEG (NEG); COCAINE (NOT ORDERED) NEG (NEG); OPIATES NEG (NEG); PHENCYCLIDINE(PCP) NEG (NEG); TRICYCLICS NEG (NEG)
[2016-08-10] MEDS ORDERED: OS500+D PO (15:02)
[2016-08-10] MEDS ORDERED: FERROUS SULF325 M1 PO (15:02)
[2016-08-10] MEDS ORDERED: L40 PO (15:03)
[2016-08-10] MEDS ORDERED: FLONASE NAS (15:03)
[2016-08-10] MEDS ORDERED: LOP25 PO (15:04)
[2016-08-10] MEDS ORDERED: XARELTO20 MG PO (15:05)
[2016-08-10] MEDS ORDERED: KLOR-CON M2020 MEQ PO (15:05)
[2016-08-10] MEDS ORDERED: ZYRTEC ALLGY10 MG PO (15:06)
[2016-08-10] MEDS ORDERED: SEROQUEL50 MG PO (15:06)
[2016-08-11 04:41] LABS: BASOPHILS 0.5 %; BASOPHILS ABSOLUTE 0.02 10/3/uL (0.0-0.16); EOSINOPHILS 2.3 %; HEMOGLOBIN 10.5 g/dL (12.0-16.0); LYMPHOCYTES 23.7 %; LYMPHOCYTES ABSOLUTE 1.02 10/3/uL (0.67-4.30); MEAN CORPUS HGB CONC 32.3 g/dL (32.0-36.0); MEAN CORPUSCULAR HEMOGLOB 32.4 pg (26.0-34.0); MEAN CORPUSCULAR VOLUME 100.3 fL (80-100); MEAN PLATELET VOLUME 10.2 fL (9.2-13.0); MONOCYTES 13.5 %; MONOCYTES ABSOLUTE 0.58 10/3/uL (0.21-1.20); NEUTROPHILS ABSOLUTE 2.58 10/3/uL (2.02-8.40); PLATELET COUNT 204 10/3/uL (150-400); RBC DISTRIBUTION WIDTH 13.7 % (12.0-16.0); RED CELL COUNT 3.24 10/6/uL (4.0-5.6); WHITE BLOOD CELLS 4.3 10/3/uL (4.5-10.5)
[2016-08-11 04:43] LABS: HEMATOCRIT 32.5 % (36.0-48.0); MANUAL DIFF NO %
[2016-08-11 04:45] LABS: INTERNATIONAL NORMAL RATI 1.8 UNITS (-); PROTIME (NOT ORD) 20.3 SEC (12.0-14.5)
[2016-08-11 04:53] LABS: BUN (BLOOD UREA NITROGEN) 13 MG/DL (6-23); CALCIUM, SERUM 8.4 MG/DL (8.5-10.4); CHLORIDE, SERUM 103 MMOL/L (96-112); CO2 (CARBON DIOXIDE) 32 MMOL/L (24-34); CREATININE 0.38 MG/DL (0.55-1.02); GFR AFRICAN AMERICAN 113 ML/MIN (>=60); GFR NON AFRICAN AMERICAN 97 ML/MIN (>=60); GLUCOSE, SERUM 81 MG/DL (60-99); PHOSPHORUS, SERUM 3.3 MG/DL (2.5-4.5); POTASSIUM, SERUM 3.8 MMOL/L (3.5-5.3); SODIUM, SERUM 141 MMOL/L (135-148)
[2016-08-12 03:48] LABS: BASOPHILS 0.6 %; BASOPHILS ABSOLUTE 0.03 10/3/uL (0.0-0.16); EOSINOPHILS 3.4 %; EOSINOPHILS ABSOLUTE 0.16 10/3/uL (0.0-0.53); HEMATOCRIT 34.9 % (36.0-48.0); HEMOGLOBIN 11.4 g/dL (12.0-16.0); IMMATURE GRANULOCYTES 0.2 %; IMMATURE GRANULOCYTES ABSOLUTE 0.01 10/3/uL (0.0-0.11); LYMPHOCYTES 26.7 %; LYMPHOCYTES ABSOLUTE 1.27 10/3/uL (0.67-4.30); MEAN CORPUS HGB CONC 32.7 g/dL (32.0-36.0); MEAN CORPUSCULAR HEMOGLOB 32.7 pg (26.0-34.0); MONOCYTES 12.8 %; MONOCYTES ABSOLUTE 0.61 10/3/uL (0.21-1.20); NEUTROPHILS 56.3 %; NEUTROPHILS ABSOLUTE 2.68 10/3/uL (2.02-8.40); PLATELET COUNT 203 10/3/uL (150-400); RBC DISTRIBUTION WIDTH 13.6 % (12.0-16.0); RED CELL COUNT 3.49 10/6/uL (4.0-5.6); WHITE BLOOD CELLS 4.8 10/3/uL (4.5-10.5)
[2016-08-12 03:49] LABS: MANUAL DIFF NO %
[2016-08-12 04:00] LABS: BUN (BLOOD UREA NITROGEN) 11 MG/DL (6-23); CALCIUM, SERUM 8.6 MG/DL (8.5-10.4); CHLORIDE, SERUM 102 MMOL/L (96-112); CO2 (CARBON DIOXIDE) 36 MMOL/L (24-34); CREATININE 0.51 MG/DL (0.55-1.02); GFR AFRICAN AMERICAN 102 ML/MIN (>=60); GFR NON AFRICAN AMERICAN 88 ML/MIN (>=60); GLUCOSE, SERUM 87 MG/DL (60-99); POTASSIUM, SERUM 3.7 MMOL/L (3.5-5.3); SODIUM, SERUM 137 MMOL/L (135-148)
[2016-08-12 18:10] LABS: FOLATE 24.5 NG/ML (>5.2); FREE T4 1.11 NG/DL (0.76-1.46); ULTRASENSITIVE TSH 1.6 MCIU/ML (0.358-3.740)
[2016-08-13 06:16] LABS: BASOPHILS 0.4 %; BASOPHILS ABSOLUTE 0.02 10/3/uL (0.0-0.16); EOSINOPHILS 4.6 %; EOSINOPHILS ABSOLUTE 0.25 10/3/uL (0.0-0.53); HEMATOCRIT 35.3 % (36.0-48.0); HEMOGLOBIN 11.3 g/dL (12.0-16.0); IMMATURE GRANULOCYTES 0.4 %; IMMATURE GRANULOCYTES ABSOLUTE 0.02 10/3/uL (0.0-0.11); LYMPHOCYTES 23.9 %; MEAN CORPUSCULAR HEMOGLOB 32.4 pg (26.0-34.0); MEAN CORPUSCULAR VOLUME 101.1 fL (80-100); MEAN PLATELET VOLUME 10.1 fL (9.2-13.0); MONOCYTES 13.4 %; MONOCYTES ABSOLUTE 0.73 10/3/uL (0.21-1.20); NEUTROPHILS 57.3 %; NEUTROPHILS ABSOLUTE 3.13 10/3/uL (2.02-8.40); PLATELET COUNT 228 10/3/uL (150-400); RBC DISTRIBUTION WIDTH 13.9 % (12.0-16.0); RED CELL COUNT 3.49 10/6/uL (4.0-5.6); WHITE BLOOD CELLS 5.5 10/3/uL (4.5-10.5)
[2016-08-13 06:20] LABS: MANUAL DIFF NO %
[2016-08-13 06:24] LABS: BUN (BLOOD UREA NITROGEN) 13 MG/DL (6-23); CALCIUM, SERUM 8.8 MG/DL (8.5-10.4); CHLORIDE, SERUM 101 MMOL/L (96-112); CO2 (CARBON DIOXIDE) 36 MMOL/L (24-34); CREATININE 0.57 MG/DL (0.55-1.02); GFR AFRICAN AMERICAN 99 ML/MIN (>=60); GFR NON AFRICAN AMERICAN 85 ML/MIN (>=60); GLUCOSE, SERUM 88 MG/DL (60-99); POTASSIUM, SERUM 3.8 MMOL/L (3.5-5.3); SODIUM, SERUM 136 MMOL/L (135-148)
[2016-08-14 05:34] LABS: BASOPHILS 0.7 %; BASOPHILS ABSOLUTE 0.03 10/3/uL (0.0-0.16); EOSINOPHILS 6.6 %; EOSINOPHILS ABSOLUTE 0.29 10/3/uL (0.0-0.53); HEMATOCRIT 35.7 % (36.0-48.0); HEMOGLOBIN 11.2 g/dL (12.0-16.0); IMMATURE GRANULOCYTES 0.2 %; IMMATURE GRANULOCYTES ABSOLUTE 0.01 10/3/uL (0.0-0.11); LYMPHOCYTES 27.5 %; LYMPHOCYTES ABSOLUTE 1.21 10/3/uL (0.67-4.30); MEAN CORPUS HGB CONC 31.4 g/dL (32.0-36.0); MEAN CORPUSCULAR HEMOGLOB 32.1 pg (26.0-34.0); MEAN CORPUSCULAR VOLUME 102.3 fL (80-100); MEAN PLATELET VOLUME 10.1 fL (9.2-13.0); MONOCYTES 15.5 %; MONOCYTES ABSOLUTE 0.68 10/3/uL (0.21-1.20); NEUTROPHILS 49.5 %; NEUTROPHILS ABSOLUTE 2.18 10/3/uL (2.02-8.40); PLATELET COUNT 205 10/3/uL (150-400); RED CELL COUNT 3.49 10/6/uL (4.0-5.6); WHITE BLOOD CELLS 4.4 10/3/uL (4.5-10.5)
[2016-08-14 05:37] LABS: MANUAL DIFF NO %
[2016-08-14 05:47] LABS: CALCIUM, SERUM 9.1 MG/DL (8.5-10.4); CHLORIDE, SERUM 102 MMOL/L (96-112); CO2 (CARBON DIOXIDE) 35 MMOL/L (24-34); CREATININE 0.59 MG/DL (0.55-1.02); GFR AFRICAN AMERICAN 98 ML/MIN (>=60); GFR NON AFRICAN AMERICAN 84 ML/MIN (>=60); GLUCOSE, SERUM 81 MG/DL (60-99); POTASSIUM, SERUM 3.8 MMOL/L (3.5-5.3); SODIUM, SERUM 141 MMOL/L (135-148)
[2016-08-14 05:48] LABS: BUN (BLOOD UREA NITROGEN) 18 MG/DL (6-23)
[2016-08-17 05:36] LABS: BASOPHILS ABSOLUTE 0.05 10/3/uL (0.0-0.16); EOSINOPHILS 7.2 %; EOSINOPHILS ABSOLUTE 0.35 10/3/uL (0.0-0.53); HEMATOCRIT 36.5 % (36.0-48.0); HEMOGLOBIN 11.8 g/dL (12.0-16.0); IMMATURE GRANULOCYTES 0.4 %; IMMATURE GRANULOCYTES ABSOLUTE 0.02 10/3/uL (0.0-0.11); LYMPHOCYTES 17.5 %; LYMPHOCYTES ABSOLUTE 0.85 10/3/uL (0.67-4.30); MEAN CORPUS HGB CONC 32.3 g/dL (32.0-36.0); MEAN CORPUSCULAR HEMOGLOB 32.6 pg (26.0-34.0); MEAN CORPUSCULAR VOLUME 100.8 fL (80-100); MEAN PLATELET VOLUME 10.1 fL (9.2-13.0); MONOCYTES 12.6 %; MONOCYTES ABSOLUTE 0.61 10/3/uL (0.21-1.20); NEUTROPHILS 61.3 %; NEUTROPHILS ABSOLUTE 2.97 10/3/uL (2.02-8.40); PLATELET COUNT 226 10/3/uL (150-400); RBC DISTRIBUTION WIDTH 13.8 % (12.0-16.0); RED CELL COUNT 3.62 10/6/uL (4.0-5.6); WHITE BLOOD CELLS 4.9 10/3/uL (4.5-10.5)
[2016-08-17 05:42] LABS: CALCIUM, SERUM 8.7 MG/DL (8.5-10.4); CHLORIDE, SERUM 103 MMOL/L (96-112); CO2 (CARBON DIOXIDE) 33 MMOL/L (24-34); CREATININE 0.46 MG/DL (0.55-1.02); GFR AFRICAN AMERICAN 106 ML/MIN (>=60); GFR NON AFRICAN AMERICAN 91 ML/MIN (>=60); GLUCOSE, SERUM 80 MG/DL (60-99); POTASSIUM, SERUM 3.5 MMOL/L (3.5-5.3); SODIUM, SERUM 140 MMOL/L (135-148)
[2016-08-17 05:44] LABS: BUN (BLOOD UREA NITROGEN) 10 MG/DL (6-23)
[2016-08-17 05:46] LABS: MANUAL DIFF NO %
[2016-08-19 05:58] LABS: BASOPHILS 1.5 %; BASOPHILS ABSOLUTE 0.08 10/3/uL (0.0-0.16); EOSINOPHILS 6.4 %; EOSINOPHILS ABSOLUTE 0.33 10/3/uL (0.0-0.53); HEMATOCRIT 38.7 % (36.0-48.0); HEMOGLOBIN 12.1 g/dL (12.0-16.0); IMMATURE GRANULOCYTES 0.4 %; IMMATURE GRANULOCYTES ABSOLUTE 0.02 10/3/uL (0.0-0.11); LYMPHOCYTES 23.4 %; LYMPHOCYTES ABSOLUTE 1.21 10/3/uL (0.67-4.30); MEAN CORPUS HGB CONC 31.3 g/dL (32.0-36.0); MEAN CORPUSCULAR HEMOGLOB 32.1 pg (26.0-34.0); MEAN CORPUSCULAR VOLUME 102.7 fL (80-100); MONOCYTES 15.1 %; MONOCYTES ABSOLUTE 0.78 10/3/uL (0.21-1.20); NEUTROPHILS 53.2 %; NEUTROPHILS ABSOLUTE 2.75 10/3/uL (2.02-8.40); PLATELET COUNT 234 10/3/uL (150-400); RBC DISTRIBUTION WIDTH 13.9 % (12.0-16.0); RED CELL COUNT 3.77 10/6/uL (4.0-5.6); WHITE BLOOD CELLS 5.2 10/3/uL (4.5-10.5)
[2016-08-19 06:00] LABS: MANUAL DIFF NO %
[2016-08-19 06:12] LABS: BUN (BLOOD UREA NITROGEN) 12 MG/DL (6-23); CALCIUM, SERUM 9.4 MG/DL (8.5-10.4); CHLORIDE, SERUM 105 MMOL/L (96-112); CO2 (CARBON DIOXIDE) 31 MMOL/L (24-34); CREATININE 0.49 MG/DL (0.55-1.02); GFR AFRICAN AMERICAN 104 ML/MIN (>=60); GFR NON AFRICAN AMERICAN 89 ML/MIN (>=60); GLUCOSE, SERUM 85 MG/DL (60-99); POTASSIUM, SERUM 3.7 MMOL/L (3.5-5.3); SODIUM, SERUM 140 MMOL/L (135-148)
[2016-08-22 06:56] LABS: BASOPHILS 2.2 %; BASOPHILS ABSOLUTE 0.11 10/3/uL (0.0-0.16); EOSINOPHILS 5.8 %; EOSINOPHILS ABSOLUTE 0.29 10/3/uL (0.0-0.53); HEMATOCRIT 36.9 % (36.0-48.0); HEMOGLOBIN 11.8 g/dL (12.0-16.0); IMMATURE GRANULOCYTES 0.2 %; IMMATURE GRANULOCYTES ABSOLUTE 0.01 10/3/uL (0.0-0.11); LYMPHOCYTES 23.4 %; LYMPHOCYTES ABSOLUTE 1.18 10/3/uL (0.67-4.30); MANUAL DIFF NO %; MEAN CORPUSCULAR HEMOGLOB 32.2 pg (26.0-34.0); MEAN CORPUSCULAR VOLUME 100.8 fL (80-100); MEAN PLATELET VOLUME 10.2 fL (9.2-13.0); MONOCYTES 12.1 %; MONOCYTES ABSOLUTE 0.61 10/3/uL (0.21-1.20); NEUTROPHILS 56.3 %; NEUTROPHILS ABSOLUTE 2.84 10/3/uL (2.02-8.40); PLATELET COUNT 235 10/3/uL (150-400); RBC DISTRIBUTION WIDTH 13.9 % (12.0-16.0); RED CELL COUNT 3.66 10/6/uL (4.0-5.6)
[2016-08-22 07:06] LABS: BUN (BLOOD UREA NITROGEN) 15 MG/DL (6-23); CALCIUM, SERUM 9.3 MG/DL (8.5-10.4); CHLORIDE, SERUM 105 MMOL/L (96-112); CO2 (CARBON DIOXIDE) 34 MMOL/L (24-34); CREATININE 0.53 MG/DL (0.55-1.02); GFR AFRICAN AMERICAN 101 ML/MIN (>=60); GFR NON AFRICAN AMERICAN 87 ML/MIN (>=60); GLUCOSE, SERUM 88 MG/DL (60-99); POTASSIUM, SERUM 3.7 MMOL/L (3.5-5.3); SODIUM, SERUM 142 MMOL/L (135-148)
[2016-08-24 10:14] LABS: BASOPHILS 2.5 %; BASOPHILS ABSOLUTE 0.14 10/3/uL (0.0-0.16); EOSINOPHILS ABSOLUTE 0.23 10/3/uL (0.0-0.53); HEMOGLOBIN 13.1 g/dL (12.0-16.0); IMMATURE GRANULOCYTES 0.4 %; IMMATURE GRANULOCYTES ABSOLUTE 0.02 10/3/uL (0.0-0.11); LYMPHOCYTES 27.3 %; LYMPHOCYTES ABSOLUTE 1.55 10/3/uL (0.67-4.30); MEAN CORPUS HGB CONC 31.9 g/dL (32.0-36.0); MEAN CORPUSCULAR HEMOGLOB 32.2 pg (26.0-34.0); MEAN PLATELET VOLUME 10.8 fL (9.2-13.0); MONOCYTES 8.3 %; MONOCYTES ABSOLUTE 0.47 10/3/uL (0.21-1.20); NEUTROPHILS 57.5 %; NEUTROPHILS ABSOLUTE 3.27 10/3/uL (2.02-8.40); PLATELET COUNT 227 10/3/uL (150-400); RBC DISTRIBUTION WIDTH 14.1 % (12.0-16.0); RED CELL COUNT 4.07 10/6/uL (4.0-5.6); WHITE BLOOD CELLS 5.7 10/3/uL (4.5-10.5)
[2016-08-24 10:15] LABS: HEMATOCRIT 41.1 % (36.0-48.0); MANUAL DIFF NO %
[2016-08-24 10:33] LABS: A/G RATIO 0.7 (0.7-1.9); ALBUMIN 2.7 G/DL (3.5-5.0); CALCIUM, SERUM 9.2 MG/DL (8.5-10.4); CHLORIDE, SERUM 104 MMOL/L (96-112); CO2 (CARBON DIOXIDE) 35 MMOL/L (24-34); CREATININE 0.56 MG/DL (0.55-1.02); GFR AFRICAN AMERICAN 99 ML/MIN (>=60); GFR NON AFRICAN AMERICAN 86 ML/MIN (>=60); GLUCOSE, SERUM 98 MG/DL (60-99); PHOSPHORUS, SERUM 3.1 MG/DL (2.5-4.5); POTASSIUM, SERUM 3.6 MMOL/L (3.5-5.3); SGPT(ALT) 21 U/L (5-65); SODIUM, SERUM 144 MMOL/L (135-148); TOTAL BILIRUBIN 0.4 MG/DL (0-1.2); TOTAL PROTEIN 6.7 G/DL (6.0-8.5); TROPONIN I <0.02 NG/ML (<0.05)
[2016-08-24 10:35] LABS: ALKALINE PHOSPHATASE 79 U/L (45-117); BUN (BLOOD UREA NITROGEN) 19 MG/DL (6-23); SGOT(AST) 24 U/L (5-40)
[2016-09-06] MEDS ORDERED: FLONASE NAS (22:22)
[2016-09-06] MEDS ORDERED: KEPPRA250 PO (22:23)
[2016-09-06] MEDS ORDERED: KEPPRA500 PO (22:23)
[2016-09-06] MEDS ORDERED: L40 PO (22:23)
[2016-09-06] MEDS ORDERED: EXELON4.6T TOP (22:24)
[2016-09-06] MEDS ORDERED: PEP20 PO (22:24)
[2016-09-06] MEDS ORDERED: CENTRUM PO (22:24)
[2016-09-06] MEDS ORDERED: CALTRAT600 PO (22:25)
[2016-09-06] MEDS ORDERED: XARELTO20 MG PO (22:25)
[2016-09-06] MEDS ORDERED: SEROQUEL25 PO ×2 (22:25)
[2016-09-06] MEDS ORDERED: LOP25 PO (22:26)
[2016-09-06] MEDS ORDERED: FERROUS SULF325 M1 PO (22:26)
[2016-09-06] MEDS ORDERED: KLOR-CON M2020 MEQ PO (22:26)
[2016-09-06] MEDS ORDERED: MYCOSOINT TOP (22:27)
[2016-09-06] MEDS ORDERED: 8 HOUR650 MG PO (22:27)
== END 2016-08-25 18:51 | DRG 603 ==
LOC: ER 11:47 → 6NO 17:13
PROVIDERS: Family Medicine; Nurse Practitioner Family; Physician Assistant; Specialist
PROC: B41F1ZZ Fluoroscopy of Right Lower Extremity Arteries using Low Osmolar Contrast (ICD-10-PCS; principal; 2016-08-17 17:00)
DX: L03.115 Cellulitis of right lower limb (principal); N39.0 Urinary tract infection, site not specified; D63.8 Anemia in other chronic diseases classified elsewhere; I50.9 Heart failure, unspecified; I11.0 Hypertensive heart disease with heart failure; I48.0 Paroxysmal atrial fibrillation; F03.90 Unspecified dementia, unspecified severity, without behavioral disturbance, psychotic disturbance, mood disturbance, and anxiety; F05 Delirium due to known physiological condition; B35.1 Tinea unguium; R44.0 Auditory hallucinations; R44.1 Visual hallucinations; G40.909 Epilepsy, unspecified, not intractable, without status epilepticus; I49.3 Ventricular premature depolarization; I70.201 Unspecified atherosclerosis of native arteries of extremities, right leg; R26.9 Unspecified abnormalities of gait and mobility; R63.4 Abnormal weight loss; R91.8 Other nonspecific abnormal finding of lung field; K21.9 Gastro-esophageal reflux disease without esophagitis; M40.204 Unspecified kyphosis, thoracic region; Z79.01 Long term (current) use of anticoagulants; Z68.20 Body mass index [BMI] 20.0-20.9, adult
CPT/HCPCS: 36245; 70450; 71010; 71250; 75710; 75774; 80048; 80053; 80202; 80305; 80307; 81001; 82607; 82746; 83735; 83880; 84100; 84439; 84443; 84481; 84484; 85025; 85610; 85730; 87040; 87086; 87150; 93005; 93925; 93970; 95816; 95819; 97110-GO; 97161-GP; 97165-GO; 97530-GO; 97535-GO; 99285; A9270-GY; C1760; C1769; C1894; G8978-CI-GP; G8979-CI-GP; G8980-CI-GP; G8987-CK-GO; G8988-CJ-GO; J2543; J3370; Q9967